=== PATIENT | female | born 1960 ===

== ENCOUNTER 2018-04-03 08:15 | Day surgery (SDC) | payer OTHER ==
[2018-04-03 09:09] VITALS: BMI 30.2
[2018-04-03] MEDS ORDERED: Lactated Ringer's 500 ML IV ONE (09:12)
[2018-04-03] MEDS ORDERED: Propofol 10 mg/ml Inj (20 ML) ONE (10:22)
[2018-04-03 11:23] VITALS: BP 99/65; PULSE 73; RESP 12; TEMP 96.2; O2SAT 96
== END 2018-04-03 12:47 | disposition home or self-care (01) ==
LOC: H.ENDO 08:15
PROVIDERS: ATTEND Internal Medicine Gastroenterology
DX: K29.70 Gastritis, unspecified, without bleeding (principal); M19.90 Unspecified osteoarthritis, unspecified site; E11.9 Type 2 diabetes mellitus without complications; E78.5 Hyperlipidemia, unspecified; K64.8 Other hemorrhoids
CPT/HCPCS: 43239; 45378; 82948; 88305; J2001; J2704; J7120